=== PATIENT | male | born 2000 | race Two or more races ===

== ENCOUNTER 2023-06-01 06:34 | Emergency (ER) | payer MEDICAID ==
[~2023-06-01] VITALS: Ht 177.8 cm; Wt 75.4 kg
[2023-06-01 06:47] VITALS: BP 142/80; PULSE 112; RESP 16; O2SAT 98
[2023-06-01] MEDS ORDERED: KETOROLAC TROMETH 30 MG/ML 1ML VIAL IV ONE (07:15)
[2023-06-01] MEDS ORDERED: SODIUM CHLORIDE 0.9% 1,000 ML IV ONE (07:15)
[2023-06-01] MEDS ORDERED: SULFAMETH-TRIMETH 80/16MG-ML 15 ML in D5W 5% 500 ML IV ONE (07:15)
[2023-06-01] MEDS ORDERED: SULF400T11 PO (07:26)
[2023-06-01 07:38] LABS: Basophils # (auto) 0 10 ^3/uL (0-0.2); Basophils % (auto) 0.7 % (0.0-2.0); Eosinophils # (auto) 0.1 10 ^3/uL (0-0.8); Eosinophils % (auto) 2.1 % (0.0-7.0); Hematocrit 41.2 % (41.0-53.0); Hemoglobin 14.2 g/dL (13.5-17.5); Lymphocytes # (auto) 1.3 10 ^3/uL (0.4-5.4); Lymphocytes % (auto) 23.7 % (10.0-50.0); Mean Corpuscular Hemoglobin 30.9 pg (28.0-32.0); Mean Corpuscular Hgb Conc. 34.3 g/dL (32.0-36.0); Mean Corpuscular Volume 89.9 fL (80.0-100.0); Monocytes # (auto) 0.5 10 ^3/uL (0-1.3); Monocytes % (auto) 9.8 % (0.0-12.0); Neutrophils # (auto) 3.6 10 ^3/uL (1.6-8.6); Neutrophils % (auto) 63.7 % (37.0-80.0); Red Blood Cells 4.59 10^6/uL (4.5-5.90); Red Cell Distribution Width 13.1 % (11.8-14.3); White Blood Cell 5.6 10^3/uL (4.4-10.8)
[2023-06-01 07:42] LABS: Chloride 106 mmol/L (98-107); Potassium 3.8 mmol/L (3.5-5.1); Sodium 140 mmol/L (136-145)
[2023-06-01 07:43] LABS: Anion Gap 5 (5-15); Carbon Dioxide 29 mmol/L (20-30)
[2023-06-01 07:44] LABS: Calcium 9.8 mg/dL (8.7-10.4)
[2023-06-01 07:49] LABS: Blood Urea Nitrogen 6 mg/dL (9-23); Glucose 98 mg/dL (74-106)
[2023-06-01 08:40] LABS: Erythrocyte Sedimentation Rate 34 mm/hr (0-20)
== END 2023-06-01 07:22 | disposition left against medical advice (07) ==
LOC: ER 06:34
DX: L03.115 Cellulitis of right lower limb (principal); A49.02 Methicillin resistant Staphylococcus aureus infection, unspecified site; J45.909 Unspecified asthma, uncomplicated; F17.210 Nicotine dependence, cigarettes, uncomplicated
CPT/HCPCS: 36415; 80048; 85025; 85652; 99283; J3490; J7060

== ENCOUNTER 2023-06-12 13:31 | Emergency (ER) | payer MEDICAID ==
[~2023-06-12] VITALS: Ht 177.8 cm; Wt 72.7 kg
[~2023-06-12 13:31] MED LIST: SULF400T11 PO
[2023-06-12 13:35] VITALS: BP 152/90; PULSE 112; RESP 14; O2SAT 96
[2023-06-12] MEDS: NALOXONE HCL 1MG/ML 2ML SYRINGE ONE (14:44)
[2023-06-12] MEDS: NALOXONE HCL 1MG/ML 2ML SYRINGE IV ONE (14:44)
== END 2023-06-12 18:13 | disposition left against medical advice (07) ==
LOC: ER 13:31 → EDBD 13:31 → ER 18:13
DX: T50.7X1A Poisoning by analeptics and opioid receptor antagonists, accidental (unintentional), initial encounter (principal); F15.10 Other stimulant abuse, uncomplicated; J45.909 Unspecified asthma, uncomplicated; F17.210 Nicotine dependence, cigarettes, uncomplicated; Y92.9 Unspecified place or not applicable
CPT/HCPCS: 96374; 99283; J2310

== ENCOUNTER 2023-06-13 23:28 | Emergency (ER) | payer MEDICAID ==
[~2023-06-13] VITALS: Ht 177.8 cm; Wt 77.7 kg
[2023-06-13 23:35] VITALS: BP 155/88; PULSE 116; RESP 20; O2SAT 98
== END 2023-06-14 03:46 | disposition left against medical advice (07) ==
LOC: ER 23:28
DX: T40.411A Poisoning by fentanyl or fentanyl analogs, accidental (unintentional), initial encounter (principal); Z53.21 Procedure and treatment not carried out due to patient leaving prior to being seen by health care provider; Y92.89 Other specified places as the place of occurrence of the external cause